=== PATIENT | male | born 1980 | race Hispanic/Latino ===

== ENCOUNTER 2018-12-21 09:11 | Emergency (ER) | payer MEDICAID ==
[2018-12-21] MEDS ORDERED: TETANUS/DIPHTHERIA TOXOID [ADULT] 0.5 ML VIAL IM ONE (09:37)
== END 2018-12-21 10:07 | disposition home or self-care (01) ==
LOC: EDH 09:11
DX: S61.512D Laceration without foreign body of left wrist, subsequent encounter (principal); F31.9 Bipolar disorder, unspecified; F20.9 Schizophrenia, unspecified; I10 Essential (primary) hypertension; Z72.0 Tobacco use; W45.8XXD Other foreign body or object entering through skin, subsequent encounter
CPT/HCPCS: 90471; 90714

== ENCOUNTER → 2024-06-08 | Outpatient (CLI) | payer MEDICAID ==
[~2024-06-08] MED LIST: IOHEXOL 350 MG/ML 100ML INFUS..BTL IV ONE
== END | disposition home or self-care (01) ==
LOC: RAH 10:33
PROVIDERS: ATTEND Internal Medicine Cardiovascular Disease
DX: R07.9 Chest pain, unspecified (principal)
CPT/HCPCS: 75574; Q9967